=== PATIENT | female | born 1980 | race American Indian/Alaskan Native ===

== ENCOUNTER 2018-02-28 03:31 | Emergency (ER) | payer MEDICAID ==
[2018-02-28 03:39] VITALS: BMI 22.8
[2018-02-28 03:49] VITALS: RESP 18; TEMP 99.3
--- NOTE | 2018-02-28 03:52 | ED PDOC ---
Arrival/HPI - General Time Seen by Provider: 02/28/18 03:33 Historian: Patient - History of Present Illness Narrative History of Present Illness (Text): 02/28/18 03:49 Tavares Alcantar is a 38 year old female, whose past medical history includes , P:2 A:1, who presents to the Emergency department complaining of generalized cramping abdominal discomfort this morning. Patient denies any fever , chills, nausea, vomiting, diarrhea, urinary complaints, back pain, or any other complaints. Patient states her menstrual period was 2 months ago and she took a test at home 1 week ago, which was negative. Patient states she has been having protected sexual intercourse. Symptom Onset: Gradual Symptom Course: Unchanged Activities at Onset: Light Context: Home Past Medical History - Provider Review Nursing Documentation Reviewed: Yes - Psychiatric Hx Substance Use: No - Anesthesia Hx Anesthesia: No Hx Anesthesia Reactions: No Hx Malignant Hyperthermia: No Family/Social History - Physician Review Nursing Documentation Reviewed: Yes Family/Social History: Unknown Family HX Smoking Status: Never Smoked Hx Alcohol Use: Yes Hx Substance Use: No Allergies/Home Meds Allergies/Adverse Reactions: Allergies No Known Allergies Allergy (Verified 06/23/16 01:24) Home Medications: Home Meds Medication Instructions Recorded Confirmed No Known Home Med 02/28/18 02/28/18 Review of Systems - Physician Review All systems were reviewed & negative as marked: Yes - Review of Systems Constitutional: Normal. absent: Fevers Eyes: Normal ENT: Normal Respiratory: Normal. absent: SOB, Cough Cardiovascular: Normal. absent: Chest Pain Gastrointestinal: Abdominal Pain. absent: Diarrhea, Nausea, Vomiting Genitourinary Female: Normal. absent: Dysuria, Frequency, Hematuria, Urine Output Changes Musculoskeletal: Normal. absent: Back Pain, Neck Pain Skin: Normal. absent: Rash Neurological: Normal. absent: Headache, Dizziness Endocrine: Normal Hemo/Lymphatic: Normal Psychiatric: Normal Physical Exam Vital Signs Reviewed: Yes Vital Signs Temp Pulse Resp BP Pulse Ox 02/28/18 03:46 99.3 F 77 18 148/70 100 Temperature: Afebrile Blood Pressure: Normal Pulse: Regular Respiratory Rate: Normal Appearance: Positive for: Well-Appearing, Non-Toxic, Comfortable Pain Distress: None Mental Status: Positive for: Alert and Oriented X 3 - Systems Exam Head: Present: Atraumatic, Normocephalic Pupils: Present: PERRL Extroacular Muscles: Present: EOMI Conjunctiva: Present: Normal Mouth: Present: Moist Mucous Membranes Neck: Present: Normal Range of Motion Respiratory/Chest: Present: Clear to Auscultation, Good Air Exchange. No: Respiratory Distress, Accessory Muscle Use Cardiovascular: Present: Regular Rate and Rhythm, Normal S1, S2. No: Murmurs Abdomen: No: Tenderness, Distention, Peritoneal Signs Back: Present: Normal Inspection Upper Extremity: Present: Normal Inspection. No: Cyanosis, Edema Lower Extremity: Present: Normal Inspection. No: Edema Neurological: Present: GCS=15, CN II-XII Intact, Speech Normal Skin: Present: Warm, Dry, Normal Color. No: Rashes Psychiatric: Present: Alert, Oriented x 3, Normal Insight, Normal Concentration Medical Decision Making ED Course and Treatment: 02/28/18 03:49 Impression: 38 year old female complaining of abdominal cramping discomfort this morning. Plan: -- Labs, Beta-HCG, lipase -- Urinalysis -- Reassess and disposition Progress Notes: 02/28/18 05:59 Pt refusing Transvaginal US at this time, states she has attend to family matters and wants to return later this morning. Pt will sign against medical advice. The patient is choosing to leave against medical advice. I have personally explained to the patient that choosing to do so may result in permanent bodily harm or . I have discussed at great length that without further evaluation and monitoring there may be unforeseen circumstances and/or deterioration causing permanent bodily harm or as a result of their choice. The patient is alert, oriented, and shows the mental capacity to make clear decisions regarding the patients health care at this time. The patient continues to wish to leave against medical advice. In light of the patients decision to leave against medical advice, patient is aware of the importance to following up as instructed. The patient has been advised that they should return to the emergency room immediately if they change their mind at any time, or if their condition begins to change or worsen in any way. - Lab Interpretations Lab Results: 02/28/18 03:50 02/28/18 03:50 Lab Results 02/28/18 04:45: Urine Color Yellow, Urine Appearance Sl cloudy, Urine pH 6.5, Ur Specific [place] 1.020, Urine Protein Negative, Urine Glucose (UA) Negative, Urine Ketones Negative, Urine Blood Negative, Urine Nitrate Negative, Urine Bilirubin Negative, Urine Urobilinogen 0.2, Ur Leukocyte Esterase Trace H, Urine RBC 0 - 2, Urine WBC 1 - 3, Ur Epithelial Cells 4 - 5, Urine Bacteria Occ , Urine HCG, Qual Negative 02/28/18 03:50: WBC 8.4, RBC 3.97, Hgb 12.1, Hct 35.7 L, MCV 89.9, MCH 30.5, MCHC 33.9, RDW 13.1, Plt Count 220, MPV 9.0 02/28/18 03:50: Beta HCG, Quant 17.25 H 02/28/18 03:50: Sodium 139, Potassium 4.0, Chloride 108 H, Carbon Dioxide 23, Anion Gap 12, BUN 7, Creatinine 0.7, Est GFR ( Amer) > 60, Est GFR (Non- Af Amer) > 60, Random Glucose 89, Calcium 9.0, Total Bilirubin 0.3, AST 27, ALT 22, Alkaline Phosphatase 47, Total Protein 6.9, Albumin 4.2, Globulin 2.8, Albumin/Globulin Ratio 1.5, Lipase 191 I have reviewed the lab results: Yes - RAD Interpretation Radiology Orders: 02/28/18 05:59 TRANSVAGINAL [US] Stat - Scribe Statement The provider has reviewed the documentation as recorded by the Nitin Oconnor Provider Scribe Attestation: All medical record entries made by the Scribe were at my direction and personally dictated by me. I have reviewed the chart and agree that the record accurately reflects my personal performance of the history, physical exam, medical decision making, and the department course for this patient. I have also personally directed, reviewed, and agree with the discharge instructions and disposition. Disposition/Present on Arrival - Present on Arrival Any Indicators Present on Arrival: No History of DVT/PE: No History of Uncontrolled Diabetes: No Urinary Catheter: No History Surgical Site Infection Following: None - Disposition Have Diagnosis and Disposition been Completed?: Yes Diagnosis: Abdominal pain, at early stage Disposition: AGAINST MEDICAL ADVICE Disposition Time: 06:03 Patient Problems: Current Active Problems Problem Status Onset Abdominal pain Acute at early stage Acute Condition: STABLE Referrals: Chelle Olsen MD [Primary Care Provider] - Follow up with primary
[2018-02-28 04:15] LABS: HEMOGLOBIN 12.1 g/dL (12.0-16.0); MEAN CELL VOLUME 89.9 fl (80.0-105.0); MEAN CORPUSCULAR HEMOGLOBIN 30.5 pg (25.0-35.0); MEAN CORPUSCULAR HGB CONC 33.9 g/dl (31.0-37.0); RBC 3.97 10^6/uL (3.5-6.1); RED CELL DISTRIBUTION WIDTH 13.1 % (11.5-14.5); WHITE BLOOD COUNT 8.4 10^3/ul (4.5-11.0)
[2018-02-28 04:18] LABS: ALB/GLOB RATIO 1.5 (1.1-1.8); ALBUMIN 4.2 g/dL (3.0-4.8); ALT/SGPT 22 U/L (7-56); AST/SGOT 27 U/L (14-36); BLOOD UREA NITROGEN 7 mg/dL (7-21); GFR NON-AFRICAN AMERICAN > 60; LIPASE 191 U/L (23-300)
[2018-02-28 05:00] LABS: PH,URINE 6.5 (4.7-8.0); URINE BILIRUBIN NEGATIVE (NEGATIVE); URINE BLOOD NEGATIVE (NEGATIVE); URINE GLUCOSE (UA) NEGATIVE (NEGATIVE); URINE LEUKOCYTE ESTERASE TRACE Leu/uL (NEGATIVE); URINE PROTEIN NEGATIVE mg/dL (<30 mg/dL); URINE UROBILINOGEN 0.2 E.U./dL (<1 E.U./dL)
[2018-02-28 05:04] LABS: HCG,QUALITATIVE URINE NEGATIVE (NEGATIVE); URINE APPEARANCE SL CLOUDY (CLEAR); URINE COLOR YELLOW (YELLOW)
[2018-02-28 05:16] LABS: URINE BACTERIA OCC (NEG); URINE RBC 0 - 2 /hpf (0-2)
[2018-02-28 06:21] VITALS: BP 103/70; PULSE 82; O2SAT 99
== END 2018-02-28 06:21 | disposition left against medical advice (07) ==
LOC: ED 03:31
DX: O26.891 Other specified pregnancy related conditions, first trimester (principal); Z3A.00 Weeks of gestation of pregnancy not specified; R10.9 Unspecified abdominal pain

== ENCOUNTER 2018-02-28 11:10 | Emergency (ER) | payer MEDICAID ==
[2018-02-28 11:11] VITALS: BMI 22.8
[2018-02-28 11:58] VITALS: RESP 18
--- NOTE | 2018-02-28 13:14 | ED PDOC ---
Arrival/HPI - General Chief Complaint: Abdominal Pain Time Seen by Provider: 02/28/18 11:26 Historian: Patient - History of Present Illness Narrative History of Present Illness (Text): 02/28/18 12:26 38-year-old female presents today with lower abdominal pain/cramping sensation. Patient was seen in the emergency room early this morning had lab work done and was found to be with a beta hCG of 17.25. Patient states her last menstrual period was in December. Patient denies vaginal bleeding or vaginal discharge. She denies back pain. Patient states she signed out AGAINST MEDICAL ADVICE earlier today because she had to leave for family reasons. pt returns now for ultrasound. c/o only of minimal lower abdominal cramping. no other complaints. Past Medical History - Provider Review Nursing Documentation Reviewed: Yes - Travel History Have you recently traveled outside [place] w/in the past 3 mons?: No - Psychiatric Hx Substance Use: No - Anesthesia Hx Anesthesia: No Hx Anesthesia Reactions: No Hx Malignant Hyperthermia: No Family/Social History - Physician Review Nursing Documentation Reviewed: Yes Family/Social History: Unknown Family HX Smoking Status: Never Smoked Hx Alcohol Use: Yes Hx Substance Use: No Allergies/Home Meds Allergies/Adverse Reactions: Allergies No Known Allergies Allergy (Verified 02/28/18 11:58) Home Medications: Home Meds Medication Instructions Recorded Confirmed No Known Home Med 02/28/18 02/28/18 Review of Systems - Review of Systems Constitutional: absent: Fatigue, Fevers Respiratory: absent: SOB, Cough Cardiovascular: absent: Chest Pain, Palpitations Gastrointestinal: Abdominal Pain. absent: Constipation, Diarrhea, Nausea, Vomiting Genitourinary Female: absent: Dysuria, Frequency, Hematuria, Vaginal Bleeding, Vaginal Discharge Musculoskeletal: absent: Arthralgias, Back Pain, Neck Pain Skin: absent: Rash, Pruritis Neurological: absent: Headache, Dizziness Psychiatric: absent: Anxiety, Depression, Suicidal Ideation Physical Exam Vital Signs Reviewed: Yes Vital Signs Temp Pulse Resp BP Pulse Ox 02/28/18 14:15 98.5 F 82 18 124/72 99 02/28/18 11:50 98.6 F 75 18 128/86 98 Temperature: Afebrile Blood Pressure: Normal Pulse: Regular Respiratory Rate: Normal Appearance: Positive for: Well-Appearing, Non-Toxic, Comfortable Pain Distress: None Mental Status: Positive for: Alert and Oriented X 3 - Systems Exam Head: Present: Atraumatic Mouth: Present: Moist Mucous Membranes Neck: Present: Normal Range of Motion Respiratory/Chest: Present: Clear to Auscultation, Good Air Exchange. No: Respiratory Distress, Accessory Muscle Use Cardiovascular: Present: Regular Rate and Rhythm, Normal S1, S2. No: Murmurs Abdomen: Present: Normal Bowel Sounds. No: Tenderness, Distention, Peritoneal Signs, Rebound, Guarding Back: Present: Normal Inspection. No: Midline Tenderness, Paraspinal Tenderness Upper Extremity: Present: Normal ROM Lower Extremity: Present: Normal ROM Neurological: Present: GCS=15, Speech Normal Skin: Present: Warm, Dry, Normal Color. No: Rashes Psychiatric: Present: Alert, Oriented x 3 Medical Decision Making ED Course and Treatment: 02/28/18 15:26 Patient nontoxic well-appearing in no distress with stable vital signs I reviewed labs from previous visit earlier today Beta hCG 17.25 CBC within normal limits CMP within normal limits Patient returns requiring transvaginal ultrasound as patient claims her LMP was in December. Transvaginal ultrasound:FINDINGS: UTERUS: Measures 9.1 x 4.7 x 5.1 cm. Retroverted, normal in size and appearance. No fibroid or other mass lesion seen. ENDOMETRIUM: Measures 9.0 mm in diameter. No evidence of intrauterine gestational sac. CERVIX: No cervical abnormality identified. RIGHT OVARY: Not visualized. LEFT OVARY: Measures 2.8 x 3.0 x 1.7 cm. No solid mass. Normal flow. FREE FLUID: There is small amount of free fluid in the cul de sac. OTHER FINDINGS: None. IMPRESSION: No evidence of intrauterine gestational sac. Small amount of free fluid in the cul de sac of uncertain etiology and clinical significance. pt was advised to return in 2 days for repeat beta hcg; pt advised f/u with [facility] within the next 2 days. advised pain of close monitoring as until there is visible fetus, ectopic concern exists. pt was advised immediate return if symptoms worsen, persist or if new symptoms develop. pt was advised to STOP smoking as it will cause harm to fetus. pt was advised to take vitamins daily. Patient verbalizes understanding of discharge instructions and need for immediate followup. Impression: abdominal pain, + test Tylenol every 4 hours as needed for pain take vitamins daily. Increase fluids Followup with the transitional nurse within the next 2 days Return immediately if symptoms worsen persist or if new symptoms develop: High fevers, heavy bleeding, severe abdominal pain, vomiting, diarrhea, dizziness or weakness or any other concerning symptoms develop. Repeat beta hCG in 48 hours - RAD Interpretation Radiology Orders: 02/28/18 12:14 OB TRANSVAGINAL [US] Stat Disposition/Present on Arrival - Present on Arrival Any Indicators Present on Arrival: No History of DVT/PE: No History of Uncontrolled Diabetes: No Urinary Catheter: No History of Decub. Ulcer: No History Surgical Site Infection Following: None - Disposition Have Diagnosis and Disposition been Completed?: Yes Diagnosis: Abdominal pain, Positive test Disposition: HOME/ ROUTINE Disposition Time: 13:45 Patient Plan: Discharge Condition: GOOD Additional Instructions: Tylenol every 4 hours as needed for pain take vitamins daily. Increase fluids Followup with the transitional nurse within the next 2 days Return immediately if symptoms worsen persist or if new symptoms develop: High fevers, heavy bleeding, severe abdominal pain, vomiting, diarrhea, dizziness or weakness or any other concerning symptoms develop. Repeat beta hCG in 48 hours Referrals: Soledad Jacobson MD [Medical Doctor] - Follow up with primary [facility] [Outside] - [facility] with [facility] [Outside] - Follow up with primary Arron Franco MD [Staff Provider] - Follow up with primary Forms: [facility] (Guatemalan), WORK NOTE
--- NOTE | 2018-02-28 13:41 | US ---
Date of service: 02/28/2018 HISTORY: abd cramping, beta was 17 last night COMPARISON: None available. TECHNIQUE: Transvaginal pelvic ultrasound was performed. FINDINGS: UTERUS: Measures 9.1 x 4.7 x 5.1 cm. Retroverted, normal in size and appearance. No fibroid or other mass lesion seen. ENDOMETRIUM: Measures 9.0 mm in diameter. No evidence of intrauterine gestational sac. CERVIX: No cervical abnormality identified. RIGHT OVARY: Not visualized. LEFT OVARY: Measures 2.8 x 3.0 x 1.7 cm. No solid mass. Normal flow. FREE FLUID: There is small amount of free fluid in the cul de sac. OTHER FINDINGS: None. IMPRESSION: No evidence of intrauterine gestational sac. Small amount of free fluid in the cul de sac of uncertain etiology and clinical significance.
[2018-02-28 14:18] VITALS: BP 124/72; PULSE 82; TEMP 98.5; O2SAT 99
== END 2018-02-28 14:15 | disposition home or self-care (01) ==
LOC: ED 11:10
DX: Z32.01 Encounter for pregnancy test, result positive (principal); R10.30 Lower abdominal pain, unspecified

== ENCOUNTER 2018-11-14 20:41 | Emergency (ER) | payer MEDICAID ==
[2018-11-14 20:41] VITALS: BMI 22.8
[2018-11-14 20:55] VITALS: TEMP 98.3; O2SAT 100
[2018-11-14] MEDS ORDERED: Sodium Chloride 0.9% 1,000 ML IV STA (21:24)
[2018-11-14 21:39] LABS: BASO # 0.01 K/mm3 (0.0-2.0); BASO % 0.1 % (0.0-3.0); EOS # 0.4 (0.0-0.7); EOS % 4.6 % (1.5-5.0); LYMPH # 3.5 (1.2-3.4); LYMPH % 45.2 % (22.0-35.0); MEAN CELL VOLUME 91.4 fl (80.0-105.0); MEAN CORPUSCULAR HEMOGLOBIN 30.3 pg (25.0-35.0); MEAN CORPUSCULAR HGB CONC 33.1 g/dl (31.0-37.0); MEAN PLATELET VOLUME 8.7 fl (7.0-11.0); MONO # 0.2 (0.1-0.6); MONO % 2.9 % (1.0-6.0); RBC 3.96 10^6/uL (3.5-6.1); RED CELL DISTRIBUTION WIDTH 12.8 % (11.5-14.5); WHITE BLOOD COUNT 7.7 10^3/uL (4.5-11.0)
[2018-11-14 21:44] LABS: PARTIAL THROMBOPLASTIN TIME 30.5 Seconds (26.9-38.3); PROTHROMBIN TIME 11.1 SECONDS (9.4-12.5)
[2018-11-14 21:50] LABS: ALB/GLOB RATIO 1.3 (1.1-1.8); ALT/SGPT 20 U/L (7-56); AST/SGOT 21 U/L (14-36); BLOOD UREA NITROGEN 15 mg/dL (7-21); CALCIUM 9.2 mg/dL (8.4-10.5); GFR NON-AFRICAN AMERICAN > 60; LIPASE 247 U/L (23-300)
[2018-11-14] MEDS ORDERED: Potassium Chloride 20 mEq ER Tab PO STA (22:21)
[2018-11-14] MEDS ORDERED: Iohexol 350 MG/100 ML VIAL ONE (22:54)
--- NOTE | 2018-11-15 00:56 | ED PDOC ---
Arrival/HPI - General Chief Complaint: GI Problem Time Seen by Provider: 11/14/18 20:50 Historian: Patient - History of Present Illness Narrative History of Present Illness (Text): 38 y/o female with no significant PMH presents to the ED c/o abdominal pain x 2 months that worsened today. Pain is intermittent, sharp, generalized but worst in lower quadrants that radiates to lower back. Associated nausea, loose nonbloody stools, and abdominal bloating. Has not taken any medications for symptoms. LMP 2 weeks ago. Denies fever, chills, urinary symptoms, vaginal bleeding or discharge, saddle anesthesia, bowel/bladder incontinence, leg pain, chest pain, SOB< cough, sinus congestion, headache, dizziness, vomiting, rash, or any other associated symptoms. Past Medical History - Provider Review Nursing Documentation Reviewed: Yes - Infectious Disease Hx of Infectious Diseases: None - Cardiac Hx Cardiac Disorders: No - Pulmonary Hx Respiratory Disorders: No - Neurological Hx Neurological Disorder: No - HEENT Hx HEENT Disorder: No - Renal Hx Renal Disorder: No - Endocrine/Metabolic Hx Endocrine Disorders: No - Hematological/Oncological Hx Blood Disorders: No - Integumentary Hx Dermatological Disorder: No - Musculoskeletal/Rheumatological Hx Musculoskeletal Disorders: No - Gastrointestinal Hx Gastrointestinal Disorders: No - Genitourinary/Gynecological Hx Genitourinary Disorders: No - Psychiatric Hx Psychophysiologic Disorder: No Hx Substance Use: No - Anesthesia Hx Anesthesia: No Hx Anesthesia Reactions: No Hx Malignant Hyperthermia: No Family/Social History - Physician Review Nursing Documentation Reviewed: Yes Family/Social History: No Known Family HX Smoking Status: Light Smoker < 10 Cigarettes Daily Hx Alcohol Use: Yes Hx Substance Use: No Allergies/Home Meds Allergies/Adverse Reactions: Allergies No Known Allergies Allergy (Verified 02/28/18 11:58) Review of Systems - Review of Systems Constitutional: Normal. absent: Fevers Eyes: Normal. absent: Vision Changes ENT: Normal. absent: Sore Throat, Sinus Congestion Respiratory: Normal. absent: SOB, Cough Cardiovascular: Normal. absent: Chest Pain, Palpitations, Syncope Gastrointestinal: Abdominal Pain, Stool Changes, Diarrhea, Nausea. absent: Vomiting, Appetite Changes, Hematochezia, Hematemesis Genitourinary Female: Normal. absent: Dysuria, Frequency, Vaginal Bleeding, Vaginal Discharge Musculoskeletal: Normal. absent: Back Pain, Neck Pain Skin: Normal. absent: Rash Neurological: Normal. absent: Headache, Dizziness Physical Exam Vital Signs Reviewed: Yes Vital Signs Temp Pulse Resp BP Pulse Ox 11/14/18 20:53 98.3 F 74 14 127/97 H 100 Temperature: Afebrile Blood Pressure: Normal Pulse: Regular Respiratory Rate: Normal Appearance: Positive for: Well-Appearing, Non-Toxic, Comfortable Pain Distress: None Mental Status: Positive for: Alert and Oriented X 3 - Systems Exam Head: Present: Atraumatic, Normocephalic Pupils: Present: PERRL Extroacular Muscles: Present: EOMI Conjunctiva: Present: Normal Mouth: Present: Moist Mucous Membranes Neck: Present: Normal Range of Motion Respiratory/Chest: Present: Clear to Auscultation, Good Air Exchange. No: Respiratory Distress, Accessory Muscle Use Cardiovascular: Present: Regular Rate and Rhythm, Normal S1, S2 Abdomen: Present: Tenderness (generalized, worst RLQ, Suprapubic), Normal Bowel Sounds. No: Distention, Peritoneal Signs, Rebound, Guarding Back: Present: Normal Inspection. No: CVA Tenderness Upper Extremity: Present: Normal Inspection, Normal ROM. No: Cyanosis, Edema Lower Extremity: Present: Normal Inspection, Normal ROM. No: Other (no erythema, warmth, or fluctuance to buttock) Neurological: Present: GCS=15, Speech Normal, Motor Func Grossly Intact, Normal Sensory Function, Gait Normal Skin: Present: Warm, Dry, Normal Color. No: Rashes, Erythematous, Induration, Abscess Psychiatric: Present: Alert, Oriented x 3, Normal Insight, Normal Concentration, Normal Affect, Normal Mood Medical Decision Making ED Course and Treatment: Initial Plan: * Labs * UA * CT Abd/Pelvis * Transvaginal Ultasound * IVF, Toradol CT shows enteritis and possible cellulitis of buttock. Pt without buttock pain, states she had plastic surgery in the area 10-12 years prior. No erythema. warmth, or tenderness to buttock. Transvaginal ultrasound unremarkable Bloodwork reviewed, unremarkable Pt refuses UA Pt reports complete resolution of pain with medication. Advised GI and PMD followup. Diagnostic testing results and plan of care discussed with patient. Strict instructions given regarding prescription use, importance of followup, and signs/symptoms to return to ER including worsening pain, vomiting, fever, or any other new/worsening symptoms. Pt verbalized understanding of discussion. Patient is A&Ox3, ambulating with steady gait, with vital signs stable for discharge. - Lab Interpretations Lab Results: PT 11.1 SECONDS (9.4-12.5) 11/14/18 21: INR 1.00 11/14/18 21:31 APTT 30.5 Seconds (26.9-38.3) 11/14/18 21:31 Total Bilirubin 0.2 mg/dL (0.2-1.3) 11/14/18 21:31 AST 21 U/L (14-36) 11/14/18 21:31 ALT 20 U/L (7-56) 11/14/18 21:31 Alkaline Phosphatase 42 U/L (38-126) 11/14/18 21: Total Protein 7.0 g/dL (5.8-8.3) 11/14/18 21: Albumin 4.0 g/dL (3.0-4.8) 11/14/18 21: Globulin 3.0 gm/dL 11/14/18 21: Albumin/Globulin Ratio 1.3 (1.1-1.8) 11/14/18 21: Lipase 247 U/L (23-300) 11/14/18 21:31 11/14/18 21:31 11/14/18 21:31 Lab Results 11/14/18 21:31: Sodium 139, Potassium 3.4 L, Chloride 104, Carbon Dioxide 27, Anion Gap 11, BUN 15, Creatinine 0.8, Est GFR ( Amer) > 60, Est GFR (Non- Af Amer) > 60, Random Glucose 89, Calcium 9.2, Magnesium 1.8, Total Bilirubin 0.2, AST 21, ALT 20, Alkaline Phosphatase 42, Total Protein 7.0, Albumin 4.0, Globulin 3.0, Albumin/Globulin Ratio 1.3, Lipase 247 11/14/18 21:31: PT 11.1, INR 1.00, APTT 30.5 11/14/18 21:31: WBC 7.7, RBC 3.96, Hgb 12.0, Hct 36.2, MCV 91.4, MCH 30.3, MCHC 33.1, RDW 12.8, Plt Count 235, MPV 8.7, Neut % (Auto) 47.2 L, Lymph % (Auto) 45.2 H, [place] % (Auto) 2.9, Eos % (Auto) 4.6, Baso % (Auto) 0.1, Lymph # (Auto) 3.5 H, [place] # (Auto) 0.2, Eos # (Auto) 0.4, Baso # (Auto) 0.01, Absolute Neuts (auto) 3.61 - RAD Interpretation Narrative RAD Interpretations (Text): 11/15/18 03:19 CT Abd/Pelvis: FINDINGS: BREASTS: The lower portions of bilateral prosthetic breast implants are noted. LUNG BASES: The lung bases appear clear. No pleural effusions are seen. LIVER: Unremarkable. GALLBLADDER AND BILE DUCTS: The gallbladder appears within normal limits. No radioopaque gallstones are seen. No biliary ductal dilatation is evident. PANCREAS: Unremarkable. SPLEEN: Unremarkable. ADRENAL GLANDS: Unremarkable. KIDNEYS, URETERS, AND BLADDER: The kidneys appear within normal limits. There is no hydronephrosis or hydroureter. No urinary calculi are seen. The urinary bladder appeared normal in size and configuration. STOMACH AND BOWEL: Unremarkable appearance of the stomach. No evidence of bowel obstruction. Mucosal wall thickening and fluid are seen in the lumen of the small an largeintestinal tract compatible with diffuse enterocolitis. Infectious or inflammatory etiologies are thought most likely. APPENDIX: No evidence of acute appendicitis on CT examination. PERITONEUM: No free fluid. No free air. LYMPH NODES: No lymphadenopathy is evident. REPRODUCTIVE: Unremarkable as visualized. VASCULATURE: No evidence of abdominal aortic aneurysm. BONES: No aggressive appearing osseous lesion. No acute osseous pathology evident. SOFT TISSUES: Multiple small subcutaneous nodules are scattered throughout the buttocks bilaterally. Additionally, subcutaneous haziness is seen in this same region which could be consistent with cellulitis. IMPRESSION: 1. Evidence of diffuse enterocolitis. 2. Multiple scattered nodules and subcutaneous stranding in the buttocks bilaterally may indicate cellulitis. 3. The lower portion of bilateral prosthetic breast implants are noted. Electronically signed on November 15, 2018 12:29:41 AM EDT by: Panfilo Fagan M.D., Certified by ABR, MSK, Neuroradiology Transvaginal US: Findings Uterus Measures 11.1 x 5.0 x 7.0 cm. Normal in size. Retroverted. No fibroid or other mass lesion seen. Endometrium Measures 1.2 cm in diameter. Cervix Measures 4.5 cm. No cervical abnormality identified Right ovary Measures 2.7 x 2.8 x 2.8 cm. No solid mass. Normal flow. Cyst measures 1.1 x 1.0 x 1.1 cm. Left ovary Not seen. Free fluid No significant free fluid noted. Other Findings None. Impression Retroverted uterus . Right ovarian cyst. Left ovary not seen. Electronically signed on November 14, 2018 11:42:30 PM EDT by: Dilan Rojas M.D., M.B.A., Certified By [facility] Fellowship Trained MRI and CT Specialist 11/17/18 00:07 Radiology Orders: 11/14/18 21:24 ABD & PELVIS IV CONTRAST ONLY [CT] Stat TRANSVAGINAL [US] Stat Ground Service Equipment Mechanic: Radiologist - Medication Orders Current Medication Orders: Discontinued Medications Sodium Chloride (Sodium Chloride 0.9%) 1,000 mls @ 1,000 mls/hr IV .Q1H STA Stop: 11/14/18 22:23 Ketorolac Tromethamine (Toradol) 30 mg IVP STAT STA Stop: 11/14/18 21:25 Potassium Chloride (K-Dur 20 Meq Er Tab) 40 meq PO STAT STA Stop: 11/14/18 22:22 Disposition/Present on Arrival - Present on Arrival Any Indicators Present on Arrival: No History of DVT/PE: No History of Uncontrolled Diabetes: No Urinary Catheter: No History of Decub. Ulcer: No History Surgical Site Infection Following: None - Disposition Have Diagnosis and Disposition been Completed?: Yes Diagnosis: Enteritis Disposition: HOME/ ROUTINE Disposition Time: 00:30 Condition: IMPROVED Discharge Instructions (ExitCare): Viral Gastroenteritis, Adult (DC) Additional Instructions: Bentyl every 12 hours as needed Pepcid every 12 hours as needed Followup with GI doctor within 2 days Followup with primary doctor within 2 days Return to ER with any new/worsening symptoms Prescriptions: Dicyclomine [Dicyclomine HCl] 10 mg PO Q12H PRN #14 cap PRN Reason: Pain, Moderate (4-7) Famotidine [Pepcid] 20 mg PO Q12H #14 tab Referrals: [facility] [place]] - Follow up with primary Luis Felipe Umanzor MD [Staff Provider] - Follow up with primary Soldead Jacobson MD [Medical Doctor] - Follow up with primary Forms: [facility] ([place]ian), WORK NOTE
[2018-11-15 01:37] VITALS: BP 121/72; PULSE 76; RESP 15
--- NOTE | 2018-11-15 08:59 | US ---
Date of service: 11/14/2018 HISTORY: Lower abdominal and back pain. LMP 10/22/2018. COMPARISON: 02/28/2018. Pelvic ultrasound November 14, 2018. CT abdomen and pelvis TECHNIQUE: Transvaginal only. Real -time technique with 2D, duplex and color Doppler FINDINGS: UTERUS: Measures 5 x 7 x 11.1 cm. Normal in size and appearance. No fibroid or other mass lesion seen. ENDOMETRIUM: Measures 12.1 mm in diameter. No ultrasound findings to suggest gestational sac, fluid, debris, mass or polyp or other pathologic process within the endometrium. CERVIX: No cervical abnormality identified. RIGHT OVARY: Measures 2.8 x 2.7 x 2.8 cm. No solid mass. Normal flow. Follicle/cyst 11 mm. LEFT OVARY: Not visible. FREE FLUID: No significant free fluid noted. OTHER FINDINGS: None. IMPRESSION: No significant or acute findings to account for/ related to the clinical presentation. Additional benign and/or incidental findings described above. Limitations of the current examination: Nonvisualization left adnexa. Concordant findings (preliminary report) provided by [facility].
--- NOTE | 2018-11-15 12:02 | CT ---
Date of service: 11/14/2018 PROCEDURE: CT Abdomen and Pelvis with contrast HISTORY: Lower abdominal pain. LMP 10/22/2018. COMPARISON: 11/15/2018. Pelvic ultrasound TECHNIQUE: Intravenous contrast dose: 100 cc Omnipaque 350. Radiation dose: Total exam DLP = 342.58 mGy-cm. This CT exam was performed using one or more of the following dose reduction techniques: Automated exposure control, adjustment of the mA and/or kV according to patient size, and/or use of iterative reconstruction technique. FINDINGS: LOWER THORAX: Unremarkable. Bilateral saline implants, unremarkable as visualized. LIVER: Unremarkable. No gross lesion or ductal dilatation. GALLBLADDER AND BILE DUCTS: Unremarkable. PANCREAS: Unremarkable. No gross lesion or ductal dilatation. SPLEEN: Unremarkable. ADRENALS: Unremarkable. No mass. KIDNEYS AND URETERS: Unremarkable. No hydronephrosis. No solid mass. VASCULATURE: Unremarkable. No aortic aneurysm. No atherosclerotic calcification or mural plaque present. BOWEL: Fluid-filled stomach. Fluid-filled small bowel without mechanical obstruction. APPENDIX: A normal appendix is visualized in it's entirety. PERITONEUM: Unremarkable. No free fluid. No free air. LYMPH NODES: Unremarkable. No enlarged lymph nodes. BLADDER: Unremarkable. REPRODUCTIVE: Unremarkable. BONES: No acute fracture. OTHER FINDINGS: Innumerable buttock/sub gluteal injection granuloma noted. IMPRESSION: No acute findings related to/ accounting for the clinical presentation. Additional benign and/or incidental findings described above. Concordant results (preliminary interpretation) provided by [facility]. Procedure Completed: 23:25. Preliminary Report: Interpreted and electronically signed: 00:29. Final Interpretation: 11:58.
== END 2018-11-15 01:30 | disposition home or self-care (01) ==
LOC: ED 20:41
DX: K52.9 Noninfective gastroenteritis and colitis, unspecified (principal)
CPT/HCPCS: 74177; 76830; 80053; 83690; 83735; 85025; 85610; 85730; 96360; 99284; J7030; Q9967